=== PATIENT | male | born 1960 | race Hispanic/Latino ===

== ENCOUNTER → 2017-08-03 | Day surgery (SDC) | payer OTHER ==
[~2017-08-03] MED LIST: BACITRACIN 50,000 UNIT VIAL ONE; BUPIVACAINE HCL 0.5% INJ 30 ML VIAL INJ ONE; CLINDAMYCIN PHOS 900MG/ D5W 50 50 ML IV ONE; DEXAMETHASONE SOD PHOS INJ 4 MG/ML VIAL ONE; FENTANYL CITRATE/PF 100MCG/2 ML INJ ONE; LIDOCAINE HCL 2% LOCAL INJ 5 ML SDV VIAL INJ ONE; MIDAZOLAM HCL 2 MG/2 ML VIAL ONE; NEOSTIGMINE 1 MG/ML 10ML VIAL ONE; NIFEDIPINE ER90 M1 PO; NORCO 7.5-3251 EACH PO; ONDANSETRON HCL INJ 2 MG/ML VIAL ONE; PROPOFOL IV EMULSION 10 MG/ML 20 ML VIAL ONE; SEVOFLURANE INHAL SOLN 250 ML PEN BTL ONE; TYLENOL WITH C1 EACH PO
--- NOTE | 2017-08-03 10:49 | Operative Report ---
DATE OF PROCEDURE: August 03, 2017 [employer] UNDERWRITER: Carlos Guzman PA-C The patient was brought to the operating room for induction of anesthesia. Throughout this case, my PA's assistance was necessary for retraction of soft tissue and positioning of the extremity. This allows for efficient and technically successful execution of the operation and is considered medically necessary. PREOPERATIVE DIAGNOSIS: Complication of infection involving hardware, left ankle. POSTOPERATIVE DIAGNOSIS: Complication of infection involving hardware, left ankle. PROCEDURE: Left ankle irrigation and sharp debridement and hardware removal. INDICATIONS: The patient is a 56-year-old gentleman who is several months status post an ORIF of a left ankle fracture. He has a wound infection. We have tried to treat this with antibiotics and local wound care without success. He has a history of drinking and tobacco abuse. We have discussed the findings with the patient. We plan on hardware removal and debridement. The risks and benefits were explained. He stated he understood and wished to proceed. DESCRIPTION OF PROCEDURE: The patient was brought to the operating room and placed under general anesthetic. His left lower extremity was prepped and draped in a sterile manner. A preoperative time out was performed. The previous incision was utilized. There was some purulent material evacuated underneath the incision. This was thoroughly and sharply debrided with a surgical knife. The hardware was carefully exposed. The distal fibular plate was removed. A curette and a periosteal elevator were used to debride the fibrinous exudate. The skin margins were freshened up with the surgical knife. The wound was thoroughly irrigated with a shower-tip pulsatile lavage. The skin was closed loosely with interrupted 4-0 nylon stitches. A sterile bandage was applied. The patient was extubated and transported to the recovery room in stable condition. There was no blood loss. All needle and sponge counts were correct. Two cultures were taken at the time of the surgery. Job#: [id number] THAIS
== END | disposition home or self-care (01) ==
LOC: OR 06:32
PROVIDERS: ATTEND Specialist
DX: T84.7XXA Infection and inflammatory reaction due to other internal orthopedic prosthetic devices, implants and grafts, initial encounter (principal); L03.116 Cellulitis of left lower limb; I10 Essential (primary) hypertension; F17.210 Nicotine dependence, cigarettes, uncomplicated; Y83.8 Other surgical procedures as the cause of abnormal reaction of the patient, or of later complication, without mention of misadventure at the time of the procedure; Z01.810 Encounter for preprocedural cardiovascular examination
CPT/HCPCS: 20680; 76000; 87071; 87075; 87205; 93005; J1100; J2001; J2250; J2405; J2710